=== PATIENT | male | born 1990 | race Caucasian/White ===

== ENCOUNTER 2023-12-30 18:22 | Emergency (ER) | payer OTHER, SELFPAY ==
[2023-12-30 18:34] VITALS: BP 138/91
[2023-12-30 18:53] LABS: % Basophils 0.5 % (0-2); % Eosinophils 2.1 % (0-6); % Immature Granulocytes 0.5 % (0-0.5); % Monocytes 5.5 % (1.7-9.3); % Neutrophils 76.4 % (42.2-75.2); Absolute Basophils 0.1 10^3/uL (0-0.2); Absolute Eosinophils 0.2 10^3/uL (0-0.7); Absolute Immature Granulocytes 0.1 10^3/uL (0-0.05); Absolute Lymphocytes 1.6 10^3/uL (1.2-3.4); Absolute Monocytes 0.6 10^3/uL (0.1-0.6); Absolute Neutrophils 8.4 10^3/uL (1.4-6.5); Hemoglobin 13.7 g/dL (13.0-18.0); Mean Corp Hgb Conc. 36.1 g/dL (33.0-37.0); Mean Corpuscular Hgb 30.9 pg (27.0-31.0); Mean Corpuscular Volume 85.6 fL (80.0-94.0); Mean Platelet Volume 10.1 fL (7.4-10.4); Nucleated Red Blood Cells % 0 % (-); Platelet Count 287 10^3/uL (130-400); Red Blood Cell Count 4.44 10^6/uL (4.70-6.10); Red Cell Dist. Width 12.4 % (11.5-14.5)
[2023-12-30 19:05] LABS: ALT (SGPT) 28 U/L (0-50); AST (SGOT) 25 U/L (17-59); Albumin 4.6 g/dl (3.5-5.0); Alkaline Phosphatase 75 U/L (38-126); Blood Urea Nitrogen 15 mg/dl (9-20); Carbon Dioxide 29 mmol/L (22-30); Chloride 103 mmol/L (98-107); Glucose 123 mg/dl (70-99); Sodium 144 mmol/L (135-145); Total Bilirubin 0.4 mg/dl (0.2-1.3); Total Protein 7.6 g/dl (6.3-8.2); eGFR > 60.00
[2023-12-30 19:17] LABS: Troponin I < 0.012 ng/ml
--- NOTE | 2023-12-30 20:38 | ED.GENMED ---
History of Present Illness
General
Chief Complaint: Headache
Source: patient
Exam Limitations: none
Time Seen by Provider: 12/30/23 19:39
History of Present Illness
History of Present Illness:
This is a 33 year old male that comes in with c/o left arm numbness and tingling. States that he also started with a headache on the top of his head and back of his neck. States that this headache is like similar ones he has had in the past. States
that he has not taken anything for this. States that it is like a pressure. States that he also had diarrhea last night. Denies any fever, chills, chest pain, SOB, abd pain, nausea, vomiting, dizziness, urinary burning .
Past History
Past History
ED Past Medical History: Psychiatric (OCD, Bipolar) and Other (Sleep apnea, )
ED Past Surgical History: Tonsilectomy
Social History
Tobacco: Non-smoker
Alcohol: Occasional
Personal:
Living: with family
Employment: Employed
Review of Systems
Review of Systems
All Other Systems: ROS reviewed and negative except as documented in HPI and ROS
Constitutional: Reports no symptoms; Denies fever or chills
EENT: Reports no symptoms
Respiratory: Reports no symptoms; Denies cough or trouble breathing
Cardiac: Reports no symptoms; Denies chest pain
ABD/GI: Reports no symptoms; Denies abdominal pain, nausea, vomiting or diarrhea (Last night)
: Reports no symptoms; Denies dysuria, frequency or urgency
Musculoskeletal: Reports no symptoms
Neurological: Reports headache and numbness (tingling left arm)
Psychiatric: Reports no symptoms
Phy Exam
General Physical Exam
General Presentation: well appearing and no apparent distress
General age: appears stated age
General Skin: warm and dry
General Habitus: obese
General Mental: alert
General Hydration: appears well hydrated
ENT Exam
ENT Exam: TM's normal (large amount of Cerumen), pharynx normal and neck supple
Eye Exam
Eye Exam: EOMI
Cardiovascular Exam
Cardiovascular Exam: regular rate/rhythm, no edema and normal peripheral pulses
Pulmonary Exam
Pulmonary Exam: lungs clear, no respiratory distress, no rales, chest non tender, no crackles, no rhonchi, no wheezing and no cough
Gastrointestinal Exam
Gastrointestinal Exam: normal bowel sounds, non tender, soft, no organomegaly, no pulsatile mass, non distended and other (Obese)
Musculoskeletal Exam
Musculoskeletal Exam: full ROM, no edema and other (Hand grasp equal)
Skin Exam
Skin Exam: normal color, warm/dry, no rash and no petechia
Course
Orders/Labs/Results
Orders:
Orders
12/30/23 18:36
Electrocardiogram (*1) Urgent
Reason for Study: Other
Other Reason for Exam: numbness
CT Head W/o Iv Contrast Urgent
Comment:
Reason For Exam: headache
CR Chest - 2 Views Urgent
Comment:
Reason For Exam: cardiac symptoms
12/30/23 18:37
EKG- Treatment ONCE
12/30/23 18:44
Complete Blood Count/With Diff Urgent
Comprehensive Metabolic Panel Urgent
Troponin I Urgent
12/30/23 20:39
Acetaminophen [Tylenol] 1,000 mg PO NOW STA
Ibuprofen [Motrin] 600 mg PO NOW STA
Abnormal Lab Results
12/30/23
18:44
WBC 11.0 H 10^3/uL
(4.8-10.8)
RBC 4.44 L 10^6/uL
(4.70-6.10)
Hct 38.0 L %
(39.0-52.0)
Abs Immat Gran (auto) 0.1 H 10^3/uL
(0-0.05)
Absolute Neuts (auto) 8.4 H 10^3/uL
(1.4-6.5)
Neutrophils % 76.4 H %
(42.2-75.2)
Lymphocytes % 15.0 L %
(20.5-51.1)
Glucose 123 H mg/dl
(70-99)
12/30/23 18:44
12/30/23 18:44
WBC very slightly elevated. Hyperglycemia, troponin <0.012
Vital Signs
Initial and Last Documented VS:
Initial Vital Signs
Temp Pulse Resp BP Pulse Ox
98.3 F 98 20 138/91 94
12/30/23 18:34 12/30/23 18:34 12/30/23 18:34 12/30/23 18:34 12/30/23 18:34
Last Documented Vital Signs
Temp Pulse Resp BP Pulse Ox
98.3 F 98 20 147/73 100
12/30/23 18:34 12/30/23 18:34 12/30/23 18:34 12/30/23 21:20 12/30/23 21:20
MDM/Problems Addressed
Differential Diagnosis Includes:
carpal tunnel, Parasthesia's,
MDM/Problems Addressed:
This is a 33 year old male that comes in with c/o headache of which he has had before and some tingling and numbness in the left fingers and arms. 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
will check labs and get CT scan.
Chronic conditions affecting care:
Obesity
Acute Exacerbation and/or Progression of Chronic Illness:
NA
*Radiology
Radiology exam reviewed: preliminary read by ED provider (Chest- Negative for active disease. ) and radiology read reviewed (CT head-No acute intracranial abnormality noted. )
*Pulse Oximetry
Patient hypoxic: no
*EKG
Interpreted by ED Provider?: Yes
Heart Rate: 99
Rate: normal
Rhythm: sinus
Isabella: normal axis
Interval: normal interval
QRS Pattern: normal QRS
Ischemia: no ischemia
*Merchant Banker Interpretation
Rate: Merchant Banker- N/A
*Critical Care Note
Total Time (30-74mins, 75-104mins- exclusive of procedures): Not Applicable
ED Attending Note
-
Portions of this chart may have been created with voice recognition software.� Occasional wrong word or��sound alike� substitutions may have occurred due to the inherent limitations of voice recognition software.
Discharge Plan
Departure
Patient Disposition: Home (Routine Discharge)
Date of Disposition: 12/30/23
Time of Disposition: 21:30
Patient with high blood pressure during this ER visit?: Yes
Condition: Good
Covid-19: Not Applicable
Discharge Problem:
Headache, Numbness and tingling in left arm
Instructions: Headache, Adult (DC), Paresthesia (DC), BLOOD PRESSURE
Referrals:
Unruly Luo MD [Active] - Call in 1-3 days for appt
Activity Restrictions/Additional Instructions:
As discussed, your blood work shows that your white blood cell count is very slightly elevated. Your blood sugar is a nonfasting blood sugar. Please increase your water intake to 8-8oz glasses daily. Your CT of the head is normal along with your
chest x-ray. This may also be related to Carpal tunnel. Please follow up with the family doctor and the debt collection specialist for further evaluation. IF YOU HAVE INCREASED OR CHANGING PAIN, OR YOU HAVE ANY OTHER CONCERNS PLEASE RETURN TO THE
EMERGENCY ROOM.
Interventions
Interventions:
*Risk Screen - Suicide Last Done: 12/30/23 18:34
*General Assessment Last Done: 12/30/23 18:34
*Neglect/Abuse Screening Last Done: 12/30/23 18:34
*ED COVID-19 Vaccine History Last Done: 12/30/23 20:44
ED- Neurological Assessment Last Done: 12/30/23 20:44
Discharge Date and Time
Print Language: SINHALA
[2023-12-30 20:44] VITALS: BMI 42.0
[2023-12-30] MEDS: TYLENOL 1000 MG PO (20:46)
[2023-12-30] MEDS: MOTRIN 600 MG PO (20:46)
[2023-12-30 21:20] VITALS: BP 147/73
== END 2023-12-30 21:39 | disposition home or self-care (01) ==
LOC: EMR 18:22
PROVIDERS: Emergency Medicine; EMERGENCY PHYSICIAN Emergency Medicine; FAMILY PHYSICIAN Internal Medicine
DX: R20.2 Paresthesia of skin (principal); R20.0 Anesthesia of skin; R51.9 Headache, unspecified; R03.0 Elevated blood-pressure reading, without diagnosis of hypertension; R19.7 Diarrhea, unspecified; E66.9 Obesity, unspecified; F42.9 Obsessive-compulsive disorder, unspecified; G47.30 Sleep apnea, unspecified; F31.9 Bipolar disorder, unspecified
CPT/HCPCS: 99284; 70450; 71046; 80053; 84484; 85025; 93005